=== PATIENT | female | born 1985 | race Caucasian/White ===

== ENCOUNTER → 2018-11-03 | Outpatient (CLI) | payer OTHER | LOC: FIMAGING 07:34 | PROVIDERS: ATTEND Midwife | DX: Z36.89 Encounter for other specified antenatal screening (principal); O28.3 Abnormal ultrasonic finding on antenatal screening of mother; Z3A.19 19 weeks gestation of pregnancy ==

== ENCOUNTER → 2019-01-19 | Outpatient (CLI) | payer OTHER | LOC: FIMAGING 12:45 ==